=== PATIENT | female | born 1945 | race Caucasian/White ===

== ENCOUNTER 2019-05-16 13:28 | Emergency (ER) | payer OTHER ==
[~2019-05-16] VITALS: Ht 149.9 cm; Wt 63.1 kg
[~2019-05-16 13:28] MED LIST: ATOR40TA68 PO; CHOL500051 PO; FURO20TA3 PO; HYDR-3671 PO; HYDR-4011 PO; LORA0.5T PO; LOSA100T15 PO; MELO15TA30 PO; ONDA4TAB14 PO; PANT40TA3 PO; ZOLP5TAB7 PO
[2019-05-16 13:51] VITALS: Ht 149.9 cm; Wt 63.1 kg
[2019-05-16 20:14] VITALS: BP 139/90; PULSE 66; RESP 20
== END 2019-05-16 20:16 | disposition home or self-care (01) ==
LOC: E/R 13:28
DX: R10.32 Left lower quadrant pain (principal); I10 Essential (primary) hypertension
CPT/HCPCS: 36415; 74177; 80053; 83690; 85025; 96374; J2405; J7030; Q9967; Z7502; Z7610